=== PATIENT | female | born 1985 | race Caucasian/White ===

== ENCOUNTER 2021-02-11 06:10 | Day surgery (SDC) | payer OTHER ==
[~2021-02-11] VITALS: Ht 167.6 cm; Wt 109.9 kg
[~2021-02-11 06:10] MED LIST: ACET500 PO; CLON1 PO; ESCITALOPRAM OX20 M1 PO; GABA300 PO; NITR100CA PO; TRAZ150T57 PO
--- NOTE | 2021-02-11 07:53 | NUR ---
02/11/21 0753 Maira Rodriguez BUPIVACAINE 0.5% 50 MLS MIXED W/ EPI 0.25 ML PER ORDER TO MAKE BUPIVACAINE 0.5% 1:200,000 FOR INJECTION AT OPSITE BY DR HUSAIN. MULTI DOSE VIAL.
== END 2021-02-11 10:47 | disposition home or self-care (01) ==
LOC: ORSCSDS 06:10
PROVIDERS: Podiatrist Foot & Ankle Surgery
PROC: 0MQR0ZZ Repair Left Ankle Bursa and Ligament, Open Approach (ICD-10-PCS; principal; 2021-02-11 07:30)
PROC: 0LU Tendons, Supplement (ICD-10-PCS; principal; 2021-02-11 07:30)
PROC: 0SBG4ZZ Excision of Left Ankle Joint, Percutaneous Endoscopic Approach (ICD-10-PCS; principal; 2021-02-11 07:30)
DX: S99.912A Unspecified injury of left ankle, initial encounter (principal); M25.572 Pain in left ankle and joints of left foot; M67.88 Other specified disorders of synovium and tendon, other site
CPT/HCPCS: A9270; C1713; J0171; J0690; J1100; J1885; J2250; J2405; J2704; J3010; J7120

== ENCOUNTER 2025-03-06 15:34 | Emergency (ER) | payer OTHER ==
[~2025-03-06] VITALS: Ht 165.1 cm; Wt 68.0 kg
[~2025-03-06 15:34] MED LIST changes: +TROKENDI XR200 MG PO; +ZOLP5 PO
[2025-03-06 15:43] VITALS: BP 124/66
[2025-03-06] MEDS ORDERED: ASPERFLEX LIDOC15 GM TOP (16:52)
== END 2025-03-06 16:56 | disposition home or self-care (01) ==
LOC: ER 15:34
DX: K64.9 Unspecified hemorrhoids (principal); Z79.899 Other long term (current) drug therapy
CPT/HCPCS: 99282